=== PATIENT | male | born 1945 | race African-American/Black ===

== ENCOUNTER 2019-12-13 07:57 | Day surgery (SDC) | payer OTHER ==
[2019-12-12 12:38] VITALS: BMI 27.2
[2019-12-13] MEDS ORDERED: fentaNYL CITRATE 250 MCG/5 ML VIAL ONE (08:56)
[2019-12-13] MEDS ORDERED: LIDOCAINE HCL/PF 2% SDV 5ML VIAL ONE ×2 (08:56→08:57)
[2019-12-13] MEDS ORDERED: SODIUM CHLORIDE 0.9% P/F 10 ML VIAL IJ ONE ×2 (08:56→09:07)
[2019-12-13] MEDS ORDERED: ceFAZolin SODIUM 1 GM VIAL ONE (08:56)
[2019-12-13] MEDS ORDERED: DEXAMETHASONE SOD PHOSPHATE 4 MG/1 ML VIAL ONE (08:56)
[2019-12-13] MEDS ORDERED: PROPOFOL 20 ML ONE ×2 (08:56)
[2019-12-13] MEDS ORDERED: SUCCINYLCHOLINE CHLORIDE 200 MG/10 ML SYRINGE ONE (08:58)
[2019-12-13] MEDS ORDERED: ROCURONIUM BROMIDE 50 MG/5 ML SYRINGE ONE (08:58)
[2019-12-13] MEDS ORDERED: MIDAZOLAM HCL 2 MG/2 ML SINGLE DOSE VIAL ONE ×2 (09:03)
[2019-12-13] MEDS ORDERED: BUPIVACAINE LIPOSOME/PF (EXPAREL) 266 MG/20 ML VIAL ONE (09:05)
[2019-12-13] MEDS ORDERED: BUPIVACAINE HCL/PF 0.25% (2.5MG/ML) 10 ML VIAL ONE (09:06)
[2019-12-13] MEDS ORDERED: ONDANSETRON 4 MG/2 ML VIAL IVPUSH PRN (09:37)
[2019-12-13] MEDS ORDERED: oxyCODONE HCL 5 MG TABLET PO PRN ×2 (09:37)
[2019-12-13] MEDS ORDERED: LACTATED RINGERS SOLUTION 1,000 ML IV SCH (09:45)
--- NOTE | 2019-12-13 10:13 | HP ---
History & Physical Update - History History: No Change - Physical Physical: No Change - Assessment Assessment: No Change - Plan Plan: No Change (no change since last office visit and since last consultation with cards on 12/05/19)
[2019-12-13] MEDS ORDERED: BUPIVACAINE HCL/PF 0.5% (5MG/ML) 10 ML VIAL IJ ONE (10:52)
[2019-12-13] MEDS ORDERED: GLYCOPYRROLATE 0.2 MG/1 ML VIAL ONE (11:53)
[2019-12-13] MEDS ORDERED: NEOSTIGMINE METHYLSULFATE 0.5 MG/ML - 10 ML MDV ONE (11:53)
--- NOTE | 2019-12-13 12:35 | OP ---
Operative Note - Note: Operative Date: 12/13/19 Pre-Operative Diagnosis: right inguinal hernia Operation: laparoscopic /robotic right inguinal hernia repair with mesh Findings: large chronically incarcerated indirect inguinal hernia Implants: progrip mesh 10x15 right anatomical Post-Operative Diagnosis: Same as Pre-op Surgeon: Jacob Gómez Conversion Worker: Brianda Laguerre Anesthesia: General Specimens Removed: hernia sac Estimated Blood Loss (mls): 50
[2019-12-13] MEDS ORDERED: ONDANSETRON 4 MG/2 ML VIAL ONE (15:17)
--- NOTE | 2019-12-13 17:01 | SURG ---
Surgery Skull Grinder Note Skull Grinder: Brianda Laguerre PA-C Date of Service: 12/13/19 Diagnosis: right inguinal hernia Procedure: laparoscopic /robotic right inguinal hernia repair with mesh I was present for the entirety of the operative procedure. For further detail, please refer to operative report. Visit type - Case Type Case Type: Scheduled - Emergency Emergency Visit: No - New patient This patient is new to me today: Yes Date on this admission: 12/13/19
--- NOTE | 2019-12-13 18:44 | PN ---
Progress Note (short form) - Note Progress Note: 74M POD#0 robotic laparoscopic inguinal hernia repair under [facility]. Post-op pt. found to be bradycardic and c/o dizziness. VS: 122/74, O2: 98%, RR: 12, HR: 38-45 PE: Gen: AO*3 CV: regular rhythm, bradycardic, no M/r/g Resp: CTAB Neuro: motor/sensory exam grossly intact EKG: Sinus qi @ 40bpm Plan: 74M h/o CAD s/p PCI with symptomatic bradycardia. Will admit to telemetry. Hospitalist consulted.
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
[2019-12-13] MEDS ORDERED: SODIUM CHLORIDE 1,000 ML IV SCH (21:00)
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
[2019-12-13 21:57] LABS: PH,URINE 6.5 (5.0-8.0); URINE APPEARANCE CLEAR; URINE BILIRUBIN NEGATIVE (NEGATIVE); URINE COLOR YELLOW; URINE GLUCOSE (UA) NEGATIVE (NEGATIVE); URINE KETONE NEGATIVE (NEGATIVE); URINE LEUK ESTERASE NEGATIVE (NEGATIVE); URINE NITRITE NEGATIVE (NEGATIVE); URINE PROTEIN NEGATIVE (NEGATIVE); URINE UROBILINOGEN 0.2 mg/dL (0.2-1.0)
[2019-12-13 21:58] LABS: BASO % 0.1 % (0-2.0); HEMATOCRIT 42.2 % (35.4-49); HEMOGLOBIN 13.7 GM/dL (11.7-16.9); LYMPH % 9.5 % (8-40); MCH 30.6 pg (25.7-33.7); MCHC 32.4 g/dl (32.0-35.9); MEAN CELL VOLUME 94.5 fl (80-96); MONO % 4.5 % (3.8-10.2); NEUT % 85.9 % (42.8-82.8); PLATELET COUNT 189 K/MM3 (134-434); RBC 4.47 M/mm3 (4.00-5.60); RDW 13.9 % (11.9-15.9); WHITE BLOOD COUNT 7.4 K/mm3 (4.0-10.0)
[2019-12-13 22:31] LABS: ALBUMIN 3.8 g/dl (3.4-5.0); BILIRUBIN,TOTAL 0.9 mg/dL (0.2-1); CALCIUM 9.2 mg/dL (8.5-10.1); POTASSIUM 4.4 mmol/L (3.5-5.1); TOT PROT 7.4 g/dl (6.4-8.2)
--- NOTE | 2019-12-14 08:25 | PN ---
Progress Note (short form) - Note Progress Note: Surgery: PT without complaints of pain this am. No nausea or emesis. Urinating well. No CP or SOB Vital Signs Period Temp Pulse Resp BP Sys/Ellington Pulse Ox Last 24 Hr 97.5 F-98.0 F 43-55 16-18 131-147/62-94 97-99 GEN: A&0x3, NAD ABD: soft, [id number], non-tender, inc c/d/i Le; no calf tenderness b/l Vital Signs Period Temp Pulse Resp BP Sys/Ellington Pulse Ox Last 24 Hr 97.5 F-98.0 F 43-55 16-18 131-147/62-94 97-99 A/P:74 yo male s/p robotic assisted lap right inguinal hernia repair, POD#1 Pt with yonas post-op, cleared for discharge by cardiology. Pt to follow up next week. hold betablocker until seen in the office by cardiology Diet as tolerated f/u with dr. Villa next week D/w Dr. Villa
[2019-12-14] MEDS ORDERED: ASPIRIN 81 MG CHEWABLE TABLETS PO SCH (10:00)
[2019-12-14] MEDS ORDERED: CLOPIDOGREL BISULFATE 75 MG TABLET (FP) PO SCH (10:00)
[2019-12-14 12:01] LABS: BASO % 0.3 % (0-2.0); EOS % 1.2 % (0-4.5); HEMATOCRIT 39.3 % (35.4-49); HEMOGLOBIN 12.9 GM/dL (11.7-16.9); LYMPH % 20.9 % (8-40); MCH 30.6 pg (25.7-33.7); MCHC 32.8 g/dl (32.0-35.9); MEAN CELL VOLUME 93.4 fl (80-96); MEAN PLT VOLUME 8.6 fl (7.5-11.1); MONO % 11.6 % (3.8-10.2); PLATELET COUNT 197 K/MM3 (134-434); RBC 4.21 M/mm3 (4.00-5.60); RDW 14.2 % (11.9-15.9); WHITE BLOOD COUNT 8.2 K/mm3 (4.0-10.0)
[2019-12-14 12:28] LABS: ALBUMIN 3.7 g/dl (3.4-5.0); BLOOD UREA NITROGEN 12.4 mg/dL (7-18); CREATININE 0.8 mg/dL (0.55-1.3); MAGNESIUM 2.1 mg/dL (1.8-2.4); POTASSIUM 3.9 mmol/L (3.5-5.1); TOT PROT 6.9 g/dl (6.4-8.2)
--- NOTE | 2019-12-14 12:37 | ECHO ---
Name: ZAINA REYES Exam:Adult Echocardiogram Study Date: 12/14/2019 10:17 AM Age: 74 yrs Reason For Study: Symptomatic Bradycardia Height: 77 in Weight: 230 lb BSA: 2.4 m2 MMode/2D Measurements & Calculations IVSd: 1.3 cm Ao root diam: 3.2 cm LVIDd: 4.4 cm LA dimension: 3.8 cm LVIDs: 2.9 cm ACS: 1.9 cm LVPWd: 1.2 cm EDV(Teich): 88.3 ml LVOT diam: 2.0 cm ESV(Teich): 32.7 ml LAV (MOD-bp): 87.0 ml TAPSE: 3.0 cm RV S Torsten: 21.0 cm/sec Doppler Measurements & Calculations MV E max torsten: 103.6 cm/sec Ao V2 max: 173.7 cm/sec MV A max torsten: 103.6 cm/sec Ao max P.1 mmHg MV E/A: 1.0 Ao V2 mean: 122.3 cm/sec MV dec time: 0.27 sec Ao mean P.7 mmHg Ao V2 VTI: 35.7 cm JONI(I,D): 2.8 cm2 JONI(V,D): 2.9 cm2 LV V1 max P.0 mmHg SV(LVOT): 100.9 ml LV V1 mean P.7 mmHg LV V1 max: 166.0 cm/sec LV V1 mean: 98.5 cm/sec LV V1 VTI: 33.0 cm TR max torsten: 173.7 cm/sec PA V2 max: 97.7 cm/sec TR max P.1 mmHg PA max P.8 mmHg Med Peak E' Torsten: 6.6 cm/sec Pulm Sys Torsten: 82.4 cm/sec Med E/e': 15.6 Pulm Ellington Torsten: 66.1 cm/sec Lat Peak E' Torsten: 10.9 cm/sec Pulm S/D: 1.2 Lat E/e': 9.5 Tech Comments Suboptimal PLAX/SAX views due to orientation of patient's heart. Procedure A complete two-dimensional transthoracic echocardiogram was performed (2D, M-mode, Doppler and color flow Doppler). Left Ventricle The left ventricular size, thickness and function are normal. Ejection Fraction = 60-65%. The left ve ntricular wall motion is normal. Right Ventricle The right ventricle is normal in size and function. Atria Normal left and right atrial size and function. Mitral Valve There is no mitral regurgitation noted. Tricuspid Valve There is trace tricuspid regurgitation. There was insufficient TR detected to calculate RV systolic p ressure. Aortic Valve No hemodynamically significant valvular aortic stenosis. No aortic regurgitation is present. Pulmonic Valve There is no pulmonic valvular regurgitation. Great Vessels The aortic root is normal size. Pericardium/Pleura There is no pericardial effusion. Interpretation Summary The left ventricular size, thickness and function are normal The right ventricle is normal in size and function. There is trace tricuspid regurgitation. MD Luis E Miller 12/14/2019 12:36 PM
--- NOTE | 2019-12-14 13:04 | PN ---
Progress Note (short form) - Note Progress Note: doing well from surgery stand point. needs clearance from medicne for discharge
[2019-12-14] MEDS ORDERED: ACETAMINOPHEN 1000 MG/100 ML VIAL (NON FORMULARY) IVPB PRN (13:05)
[2019-12-14] MEDS ORDERED: KETOROLAC TROMETHAMINE 15 MG/ML VIAL IVPUSH PRN (13:05)
--- NOTE | 2019-12-14 13:53 | EKG ---
Test Reason : Blood Pressure : / mmHG Vent. Rate : 041 BPM Atrial Rate : 041 BPM P-R Int : 164 ms QRS Dur : 102 ms QT Int : 506 ms P-R-T Axes : 054 040 057 degrees QTc Int : 417 ms MARKED SINUS BRADYCARDIA ABNORMAL ECG WHEN COMPARED WITH ECG OF 20-SEP-2019 10:45, NO SIGNIFICANT CHANGE WAS FOUND Confirmed by VELASQUEZ TALBERT MD ([id number]) on 12/14/2019 1:52:54 PM Referred By: Jacob Gómez Confirmed By:VELASQUEZ TALBERT MD
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
[2019-12-14 14:28] VITALS: BP 135/67; PULSE 55; TEMP 98
--- NOTE | 2019-12-14 14:34 | PATH ---
Surgical Pathology Report Patient Name: ZAINA REYES [facility]. Rec. #: [id number] /Age/Gender: 1945 (Age: 74) / M Account: [id number] Location: [facility] PEDS/ADOL Taken: 12/13/2019 Received: 12/13/2019 Reported: 12/14/2019 Physicians: Jacob Gómez M.D. Specimen(s) Received RIGHT INGUINAL HERNIA SAC Clinical History Right inguinal hernia Final Diagnosis RIGHT INGUINAL HERNIA SAC, EXCISION: FIBROADIPOSE TISSUE, CONSISTENT WITH HERNIA SAC. Electronically Signed Estela Hussein M.D. Gross Description Received in formalin labeled "right inguinal hernia sac," is a 1.8 x 1.4 x 0.6 cm ramirez brown portion of soft tissue, consistent with a hernia sac. The specimen is serially sectioned and entirely submitted in one cassette. /12/13/2019 saudi/12/13/2019
--- NOTE | 2019-12-14 14:58 | DS ---
Physical Exam: SUBJECTIVE: Patient seen and examined. Patient is sitting up in bed, comfortable, no pain. denies any chest pain, denies any dizziness and is am bulating in room without dizziness. he uses a cane to ambulate. OBJECTIVE: quality assurance monitor chassis: sinus rhythm 65-70. Patient is a 74 year old male with a significant past medical history of CAD (s/p stent in 2019), schizophrenia, "extra heart beats (PACs/ PVCs?)" and balance issues. Patient is POD #1 R. inguinal hernia repair and post op developed lightheadedness associated with bradycardia to 40s. He was monitored on cardiac unit overnight and heart rate now stablized. He has been cleared by cardiology for discharge home with outpatient follow up with earth science laboratory technician. Patient states he has a earth science laboratory technician at the [facility] that he follows with, Dr. Morrison. and he will make an appt and follow up. Patient instructed to not take beta jeanna (Toprol) until cleared by his earth science laboratory technician. echo 12/14/2019: trace tr. Period Temp Pulse Resp BP Sys/[place] Pulse Ox Last 24 Hr 96.6 F-98.0 F 41-55 14-20 125-150/62-94 97-100 PHYSICAL EXAM GENERAL: The patient is awake, alert, and fully oriented, in no acute distress. HEAD: Normal with no signs of trauma. EYES: PERRL, extraocular movements intact, sclera anicteric, conjunctiva clear. ENT: Ears normal, nares patent, oropharynx clear without exudates, moist mucous membranes. NECK: Trachea midline, full range of motion, supple. LUNGS: Breath sounds equal, clear to auscultation bilaterally, no wheezes, no crackles HEART: Regular rate and rhythm, NSR 65-70 ABDOMEN: s/p right inguinal repair, surgical sites, c/d/i EXTREMITIES: trace edema bilterally NEUROLOGICAL: Normal speech, gait not observed. PSYCH: Normal mood, normal affect. SKIN: Warm, dry, normal turgor, no rashes or lesions noted. LABS Laboratory Results - last 24 hr 12/13/19 12/13/19 12/13/19 21:30 21:30 21:40 WBC 7.4 RBC 4.47 Hgb 13.7 Hct 42.2 MCV 94.5 MCH 30.6 MCHC 32.4 RDW 13.9 Plt Count 189 MPV 9.0 Absolute Neuts (auto) 6.4 Neutrophils % 85.9 H D Lymphocytes % 9.5 D Monocytes % 4.5 Eosinophils % 0.0 D Basophils % 0.1 Nucleated RBC % 0 Sodium 139 Potassium 4.4 Chloride 104 Carbon Dioxide 29 Anion Gap 7 L BUN 12.0 Creatinine 1.0 Est GFR (CKD-EPI)AfAm 86.76 Est GFR (CKD-EPI)NonAf 74.86 Random Glucose 153 H Calcium 9.2 Phosphorus 3.0 Magnesium 2.0 Total Bilirubin 0.9 AST 19 ALT 31 Alkaline Phosphatase 79 Total Protein 7.4 Albumin 3.8 TSH 0.28 L Free T4 0.88 Urine Color Yellow Urine Appearance Clear Urine pH 6.5 Ur Specific [place] 1.028 Urine Protein Negative Urine Glucose (UA) Negative Urine Ketones Negative Urine Blood Negative Urine Nitrite Negative Urine Bilirubin Negative Urine Urobilinogen 0.2 Ur Leukocyte Esterase Negative 12/14/19 12/14/19 11:44 11:44 WBC 8.2 RBC 4.21 Hgb 12.9 Hct 39.3 MCV 93.4 MCH 30.6 MCHC 32.8 RDW 14.2 Plt Count 197 MPV 8.6 Absolute Neuts (auto) 5.4 Neutrophils % 66.0 D Lymphocytes % 20.9 D Monocytes % 11.6 H D Eosinophils % 1.2 D Basophils % 0.3 Nucleated RBC % 0 Sodium 141 Potassium 3.9 Chloride 105 Carbon Dioxide 33 H Anion Gap 3 L BUN 12.4 Creatinine 0.8 Est GFR (CKD-EPI)AfAm 103.44 Est GFR (CKD-EPI)NonAf 89.25 Random Glucose 77 Calcium 9.0 Phosphorus Magnesium 2.1 Total Bilirubin 1.0 AST 16 ALT 26 Alkaline Phosphatase 75 Total Protein 6.9 Albumin 3.7 TSH Free T4 Urine Color Urine Appearance Urine pH Ur Specific [place] Urine Protein Urine Glucose (UA) Urine Ketones Urine Blood Urine Nitrite Urine Bilirubin Urine Urobilinogen Ur Leukocyte Esterase HOSPITAL COURSE: Date of Admission:12/13/19 Date of Discharge: 12/14/19 Minutes to complete discharge: 60 Discharge Summary Problems reviewed: Yes Reason For Visit: UNIL INGUINAL HERNIA, W/O OBST OR GANGR, NOT SPCF Condition: Good - Instructions Diet, Activity, Other Instructions: Discharge Instructions Dear ZAINA GUERRERO, Post Operative Instructions Physical activity Resume your normal everyday activity as tolerated no heavy lifting or exercise until seen by your surgeon. You may walk unlimited amounts of and climb stairs. You may resume driving the car when you feel safe and comfortable behind the wheel and are no longer taking narcotic medications. Wear your scrotal support when out of bed. Wound care You may shower 2 days after surgery but do not submerge the incisions. Do not apply lotion or ointments to incisions. Diet There are no dietary restrictions. Eat healthy, high-fiber foods. Drink 6 to 8 glasses of liquid each day. This will assist in keeping your bowels are regular. start taking ASPIRIN 81MG TODAY. START PLAVIX 75mg TOMORROW 12/14 Pain management You may take Tylenol or acetaminophen or Ibuprofen (for example, Motrin, Advil etc.) Any pain prescription medication ordered should be taken as prescribed for moderate to severe pain. Call Dr. Zheng for any of the following: Severe pain not relieved by medication Fever of 101 or higher Excessive bleeding or drainage on dressing Inability to urinate If you experience any chest pain or shortness of breath please seek emergency treatment immediately. Call the office a post operative appointment in 7 - 10 days. Referrals: Jacob Gómez [Staff Physician] - 1 Week Disposition: HOME - Home Medications Comprehensive Discharge Medication List: Ambulatory Orders Aripiprazole [Abilify] 15 mg PO HS 06/11/16 Multivitamin [Poly-Vitamin] 1 each PO DAILY 06/11/16 Clopidogrel Bisulfate [Clopidogrel] 75 mg PO DAILY 09/20/19 Aspirin [ASA -] 162 mg PO DAILY 12/12/19 Atorvastatin Ca [Lipitor] 40 mg PO HS 12/12/19 Metoprolol Succinate 25 mg PO DAILY 12/12/19 Sildenafil Citrate [Viagra] 5 mg PO PRN 12/12/19 Mv-Mn/Iron/Folic Acid/Herb 190 [Vitamin D3 Complete Caplet] 1 each PO DAILY 12/13/19 Oxycodone HCl/Acetaminophen [Percocet 5-325 mg Tablet] 1 tab PO Q4H PRN #15 tablet MDD 6 12/13/19 Problem List - Problems (1) Bradycardia Assessment/Plan: Echo with mild tricuspid regurg. labs within normal limits tsh billy. patient instructed to hold toprol and follow up with his earth science laboratory technician next week Code(s): R00.1 - BRADYCARDIA, UNSPECIFIED (2) Dizziness Assessment/Plan: resolved Code(s): R42 - DIZZINESS AND GIDDINESS (3) Inguinal hernia of right side without obstruction or gangrene Assessment/Plan: outpatient surgical follow up. Code(s): K40.90 - UNIL INGUINAL HERNIA, W/O OBST OR GANGR, NOT SPCF RECUR (4) Schizophrenia Assessment/Plan: outpatient follow up Code(s): F20.9 - SCHIZOPHRENIA, UNSPECIFIED (5) Vertigo Assessment/Plan: resolved Code(s): R42 - DIZZINESS AND GIDDINESS (6) CAD (coronary artery disease) Assessment/Plan: re start ASA today, plavix to start tomorrow per surgeon. Code(s): I25.10 - ATHSCL HEART DISEASE OF [place] CORONARY ARTERY W/O ANG PCTRS This patient is new to me today: Yes Date on this admission: 12/14/19 Emergency Visit: No Critical Care patient: No - Discharge Referral Referred to [facility] Med P.C.: No
[2019-12-14] MEDS ORDERED: ATORVASTATIN CA 40 MG TABLET (FP) PO SCH (22:00)
--- NOTE | 2019-12-14 23:28 | OP ---
DATE OF OPERATION: 12/13/2019 PREOPERATIVE DIAGNOSIS: Right inguinal hernias. POSTOPERATIVE DIAGNOSIS: Right inguinal hernias. PROCEDURE: Laparoscopic robotic assisted right inguinal hernia repair with mesh. SURGEON: Jacob Rivera MD. SPECIMEN: Hernia sac. STATIONARY ENGINEER APPRENTICE: RILEY Whipple. COMPLICATIONS: None. BLEEDING: Minimal. DISPOSITION: Patient tolerated procedure well. INDICATION: This is 74-year-old male with a chronic longstanding right inguinal hernia that has been increasingly painful who presents for elective evaluation and treatment. The risks and benefits were discussed extensively in the office as well as in the preoperative area. We reviewed the potential complications such as bowel injury, testicular injury, possible need for orchiectomy and testicular atrophy, chronic pain, the use of mesh and its potential complications including but not limited to infection, bowel erosion, and chronic pain, seromas, and hematomas. DESCRIPTION OF PROCEDURE: In the operating room, he was placed in the supine position. After induction of general anesthesia, he was prepared in the usual sterile fashion. The procedure was begun. Insufflation left costal margin to approximately 15 mmHg. A total of 3 ports introduced and started with a midline port and then secondary ports were placed under direct vision in the left and right midclavicular line just above the umbilicus. Patient was positioned in a steep Trendelenburg position. The [place] robot was docked into place and then the dissection was performed robotically using robotic scissors to lift flap in the right angle fashion starting just above the hernia defect and going deep towards inferior pubic symphysis and lateral all the way to the anterior superior iliac spine and to the iliopelvic tract. The dissection was carried by lifting this flap carefully using robotic scissors. The hernia defect was identified. The Charan's ligament was defined using cautery. The iliopelvic tract was again demonstrated carefully, and then it at this point the hernia sac was dissected carefully. It was a sac chronically incarcerated. It required to be divided. Prior to division of the sac, the vas deferens was identified as well as the testicular vessels which were carefully dissected and from the sac. The sac was divided and completely reduced, and the rest of the sac was removed from within the scrotum, and divided with cautery, and it was able to be excised and sent to pathology. Upon complete exposure of the pelvic floor on the right side and clear identification of anatomy, final checks for hemostasis were performed, and then a ProGrip 10 x 15 mesh was then introduced and positioned to cover both the direct and indirect femoral spaces. With mesh in good position, then the peritoneum was closed using a 2-0 V-Loc suture in a running fashion to close the flap that had been raised. There was a defect also more inferiorly and posteriorly where the sac had been resected, and this was also closed using a 2-0 V-Loc suture in a running fashion. There were some adhesions of the terminal ileum to the edge of the sac which was divided sharply using robotic scissors. Final check for hemostasis was performed, and then the removed under direct vision. The skin was closed with 4-0 Monocryl, Dermabond was applied, and the patient was taken to the recovery room awake and alert in stable condition. Tolerated the procedure well. JACOB RIVERA M.D. [id number]
== END 2019-12-14 17:09 | disposition home or self-care (01) ==
LOC: SUATTDRO 07:57 → JASU-SURG 07:57 → JASUSAT 07:57 → J4S 20:56 → JASUSAT 12-14 17:09
PROVIDERS: ATTEND Nurse Practitioner Family
PROC: 8E0W4CZ Robotic Assisted Procedure of Trunk Region, Percutaneous Endoscopic Approach (ICD-10-PCS; 2019-12-13)
PROC: 0YU54JZ Supplement Right Inguinal Region with Synthetic Substitute, Percutaneous Endoscopic Approach (ICD-10-PCS; principal; 2019-12-13 10:00)
DX: K40.90 Unilateral inguinal hernia, without obstruction or gangrene, not specified as recurrent (principal)
CPT/HCPCS: 36415; 71045-TC-FY; 80053; 81003; 83735; 84100; 84439; 84443; 84481; 85025; 86850; 86900; 86901; 88302-TC; 93005; 93010; 93306-TC; 94760

== ENCOUNTER 2021-03-26 00:26 | Emergency (ER) | payer OTHER ==
[2021-03-26] MEDS ORDERED: ASPIRIN 81 MG CHEWABLE TABLETS PO ONE (00:34)
[2021-03-26 00:44] VITALS: BMI 28.4
[2021-03-26] MEDS ORDERED: ASPIRIN 81 MG CHEWABLE TABLETS ONE (00:58)
[2021-03-26] MEDS ORDERED: FAMOTIDINE 20 MG/50 ML IVPB 20 MG/50 ML MG IVPB ONE ×2 (01:56→02:11)
[2021-03-26 02:12] LABS: BASO % 1.1 % (0-2.0); EOS % 4.3 % (0-4.5); HEMATOCRIT 40.2 % (35.4-49); HEMOGLOBIN 13.6 GM/dL (11.7-16.9); LYMPH % 41.1 % (8-40); MCH 30.7 pg (25.7-33.7); MCHC 33.8 g/dl (32.0-35.9); MEAN CELL VOLUME 90.9 fl (80-96); MEAN PLT VOLUME 8.4 fl (7.5-11.1); MONO % 10.3 % (3.8-10.2); NEUT % 43.2 % (42.8-82.8); PLATELET COUNT 210 10^3/uL (134-434); RBC 4.42 M/mm3 (4.00-5.60); RDW 14.3 % (11.9-15.9); WHITE BLOOD COUNT 4.6 K/mm3 (4.0-10.0)
[2021-03-26 02:20] LABS: INR 1.04 (0.83-1.09); PROTHROMBIN TIME (PATIENT) 12.8 SEC (9.7-13.0)
[2021-03-26 02:22] LABS: ACTIVATED PTT 28.2 SECONDS (25.2-36.5)
[2021-03-26 02:43] LABS: CHLORIDE 108 mmol/L (98-107); SODIUM 141 mmol/L (136-145)
[2021-03-26 02:46] LABS: CALCIUM 8.6 mg/dL (8.5-10.1)
[2021-03-26 02:47] LABS: ALBUMIN 3.5 g/dl (3.4-5.0); ANION GAP 5 MMOL/L (8-16); BLOOD UREA NITROGEN 13.8 mg/dL (7-18); CO2 28 mmol/L (21-32); GLUCOSE,RANDOM 82 mg/dL (74-106)
[2021-03-26 02:49] LABS: SGPT/ALT 38 U/L (13-61); TRIGLYCERIDES 86 mg/dL (0-150)
[2021-03-26 02:50] LABS: CHOLESTEROL 139 mg/dL (50-200); CREATININE 0.9 mg/dL (0.55-1.3); SGOT/AST 29 U/L (15-37)
[2021-03-26 02:51] LABS: BILIRUBIN,TOTAL 0.7 mg/dL (0.2-1); LDL CHOLESTEROL (ONLY SJRH) 71 mg/dL (5-100)
[2021-03-26 02:52] LABS: ALK PHOS 80 U/L (45-117); HDL CHOLESTEROL 57 mg/dL (40-60)
[2021-03-26 05:51] VITALS: BP 150/89; PULSE 45; TEMP 97.6
== END 2021-03-26 06:43 ==
LOC: JER 00:26
PROC: 3E033GC Introduction of Other Therapeutic Substance into Peripheral Vein, Percutaneous Approach (ICD-10-PCS; principal; 2021-03-26)
DX: K21.9 Gastro-esophageal reflux disease without esophagitis (principal)
CPT/HCPCS: 36415; 71045-TC-FY; 80053; 80061; 82550; 82553; 83735; 84484; 85025; 85610; 85730; 93005; 93010; 99285-25; C9803; U0003; U0005